=== PATIENT | female | born 1990 | race Caucasian/White ===

== ENCOUNTER 2024-06-15 11:11 | Outpatient (CLI) | payer OTHER, SELFPAY ==
--- OUTSIDE RECORDS SUMMARY | 2024-06-15 11:25 | XMS_ITS | Referral Summary ---
Author Organization [facility] Address [address] [place] [address] Care Team Providers Care Front Desk Associate Name Role Phone Lizette Forte MD Primary Care Provider [phone] Source Comments [facility],non-owned Affiliates and Associated Physician Practices is amultiple site organization consisting of ambulatory clinics and hospital sitesin [place], [place]. This disclosure is being madepursuant to the Care Everywhere program and may not contain all information available regarding this patient. Last updated 18.[facility] Allergies No known active allergies Medications * Be aware that medications may not be up to date on this document. Alwaysverify current medications with the patient. Medication Sig Dispensed Refills Start Date End Date Status medroxyPROGESTERone (DEPO-PROVERA) 150 MG/ML injection as directed 05/27/2020 Active multivitamin daily tablet Take 1 tablet by mouth daily with food Active diclofenac sodium (VOLTAREN) 1 % gelIndications:Pain of right hand Apply 2 (two) g to affected area 2 times daily 100 g 5 11/10/2021 Active Additional Information Patient taking differently:2 g Topical2 TIMES DAILY PRN, Reported on 01/20/2022 Menthol, Topical Analgesic, (BIOFREEZE) 4 %Indications:Pain of right hand 1 tube by Apply externally route 3 times daily as needed 150 mL 5 11/10/2021 Active amitriptyline (ELAVIL) 50 MG tabletIndications:M igraine without aura and without status migrainosus, not intractable Take 1 (one) tablet by mouth at bedtime 90 tablet 3 11/10/2021 Active SUMAtriptan (IMITREX) 100 MG tabletIndications:M igraine without aura and without status migrainosus, not intractable Take medication at the onset of migraine, may repeat in 2 hours 9 tablet 11 11/10/2021 Active Active Problems Problem Noted Date Diagnosed Date Pneumonia due to COVID-19 virus 06/15/2021 Atypical chest pain : anxiet y and /or costochondritis and/or vasospastic angina 08/18/2020 Migraine without aura and wi thout status migrainosus, not intractable 07/16/2020 Health care maintenance 07/16/2020 Bilateral leg edema 07/16/2020 Insertion of Nexplanon 07/16/2014 General counseling and advice for contraceptive management 10/30/2013 Immunizations Name Administration Dates Next Due CHERIE [facility] PRIMARY 18+YR 08/04/2020 DTP 12/15/1995, 3,06/13/1991, 991,01/10/1991 DTaP VACCINE IM (6wk-6yrs) 12/15/1995 HEP B VACCINE, PED/ADOL 06/26/2001,11/21/2000, HIB-HAEMOPHILUS INFLUENZAE B CONJUGATE VACCINE 03/17/1992,06/13/1991,03/15/1991, 991 HIB-PRP-T 4 DOSE 03/17/1992, 2,03/15/1991, 991 MMR 12/15/1995,03/17/1992 POLIO IPV 12/15/1995, 3,03/15/1991, 991 POLIO OPV 12/15/1995, 3,03/15/1991, 991 Social History Tobacco Use Types Packs/Day Years Used Date Smoking Tobacco: Former Smokeless Tobacco: Never Alcohol Use Standard Drinks/Week Comments Yes 0 (1 standard drink = 0.6 oz pur e alcohol) rarely PHQ-2 Answer Date Recorded PHQ2 TOTAL SCORE 0 01/20/2022 Sex and Gender Information Value Date Recorded Sex Assigned at Not on file Gender Identity Not on file Sexual Orientation Not on file Last Filed Vital Signs Vital Sign Reading Time Taken Comments Blood Pressure 126/85 01/20/2022 8:08 AM CDT Pulse 98 01/20/2022 8:08 AM CDT Temperature 36.8 C (98.2 F) 01/20/2022 8:08 AM CDT Respiratory Rate 15 08/15/2020 10:35 PM CDT Oxygen Saturation 97% 01/20/2022 8:08 AM CDT Inhaled Oxygen Concentration - - Weight 66.3 kg (146 lb 3.2 oz) 01/20/2022 8:08 A M CDT Height 157.5 cm (5' 2 ) 01/20/2022 8:08 AM CDT Body Mass Index 26.74 01/20/2022 8:08 AM CDT Plan of Treatment Not on file Care Teams Front Desk Associate Relationship Specialty Start Date End Date Lizette Forte MD [address] [place] [address] [id number] PCP - General Internal Medicine 07/16/20
--- OUTSIDE RECORDS SUMMARY | 2024-06-15 11:25 | XMS_ITS | Clinical Summary ---
Author Organization [facility] [employer] Address [address] [place] [address] Care Team Providers Care Sales Office Assistant Name Role Phone Lizette Forte MD Primary Care Provider [phone] Source Comments [facility],non-owned Affiliates and Associated Physician Practices is amultiple site organization consisting of ambulatory clinics and hospital sitesin [place], [place], [place] and [place]. This disclosure is being madepursuant to the Care Everywhere program and may not contain all information available regarding this patient. Last updated 18.[facility] [employer] Allergies No known active allergies Medications * [...] 3,03/15/1991, 991 POLIO OPV 12/15/1995, 3,03/15/1991, 991 Family History Medical History Relation Name Comments Diabetes - Type 2 Maternal Grandmother Thyroid Disease Maternal Grandmother Relation Name Status Comments Maternal Grandmother Social History Tobacco Use Types Packs/Day Years [...] 01/20/2022 8:08 AM CDT Plan of Treatment Health Maintenance Due Date Last Done Comments DTAP/TDAP/TD VACCINES (6 - Tdap) 2001 12/15/1995, 12/15/1995, 08/15/1992, Additional history exists HIV SCREENING 2005 HEPATITIS C SCREENING 11/07/2008 PAP SMEAR 04/08/2023 04/08/2020 (Done Outside Per Patient) COVID-19 VACCINE (2 - season) 2024 08/04/2020 INFLUENZA VACCINE (#1) 2024 DEPRESSION SCREENING 05/02/2024 08/19/2021 ZOSTER VACCINE (1 of 2) 2040 HIB VACCINE Completed 03/17/1992, 03/02, 06/13/1991, Additional history exists HEPATITIS B VACCINE Completed 06/26/2001, 11/21/2000, 10/24/2000 HPV VACCINE Aged Out No longer eligi ble based on patient's age to complete this topic MENINGOCOCCAL (Group B) VACCINE Aged Out No longer eligible based on patient's age to complete this topic MENINGOCOCCAL VACCINE Aged Out No guille solomon eligible based on patient's age to complete this topic PNEUMOCOCCAL VACCINE Aged Out No long er eligible based on patient's age to complete this topic Care Teams Sales Office Assistant Relationship Specialty Start Date End Date Lizette Forte MD [address] [place] [address] [phone] PCP - General Internal Medicine 07/16/20
--- OUTSIDE RECORDS SUMMARY | 2024-06-15 11:25 | XMS_ITS | Referral Summary ---
Author Organization [facility] Address [address] [place] [address] Care Team Providers Care Ghost Writer Name Role Phone Lizette Forte MD Primary Care Provider [phone] Allergies No known active allergies Medications benzonatate (TESSALON) 100 mg capsuleIndicati ons:Cough Take 2 capsules (200 mg total) by mouth 3 (three) times a day as needed for cough 30 capsule 06/10/2021 Active albuterol HFA (PROVENTIL HFA,VENTOLIN HFA,PROAIR HFA) 90 mcg/actuation inhaler Inhale 2 puffs every 4 (four) hours as needed for wheezing 1 each 06/10/2021 Active acetaminophen-c odeine (TYLENOL w/ CODEINE) solution 120-12 mg/5 mL Take 5 mL by mouth every 6 (six) hours as needed (cough) 120 mL 06/10/2021 Active Social History Tobacco Use Types Packs/Day Years Used Date Smoking Tobacco: Former Alcohol Use Standard Drinks/Week Comments Yes 0 (1 standard drink = 0.6 oz pur e alcohol) occas Personal Safety Answer Date Recorded Getting School Help Needed Not on file 07/02 Comments No Sex and Gender Information Value Date Recorded Sex Assigned at Not on file Legal Sex Female 9:06 PM LINE PATROLLER Gender Identity Not on file Sexual Orientation Not on file Last Filed Vital Signs Vital Sign Reading Time Taken Comments Blood Pressure 126/80 06/10/2021 3:38 AM LINE PATROLLER Pulse 96 06/10/2021 3:38 AM LINE PATROLLER Temperature 37.2 C (98.9 F) 06/09/2021 9:23 PM LINE PATROLLER Respiratory Rate 16 06/10/2021 3:38 AM LINE PATROLLER Oxygen Saturation 97% 06/10/2021 3:38 AM LINE PATROLLER Inhaled Oxygen Concentration - - Weight 64.1 kg (141 lb 5 oz) 06/09/2021 9:23 PM LINE PATROLLER Height - - Body Mass Index - - Plan of Treatment Not on file Insurance CHOICE PLUS CHOICE PLUS Care Teams Ghost Writer Relationship Specialty Start Date End Date Lizette Forte MD [address] [place] [id number] PCP - General Internal Medicine 06/09/21
--- OUTSIDE RECORDS SUMMARY | 2024-06-15 11:25 | XMS_ITS | Patient Health Summary ---
Author Organization [facility] Address [address] [place] [address] Care Team Providers Care Boot Maker Name Role Phone Lizette Forte MD Primary Care Provider [phone] Note [address] [facility],non-owned Affiliates and Associated Physician Practices is amultiple site organization consisting of ambulatory clinics and hospital sitesin [place], [place], [place] and [place]. This disclosure is being madepursuant to the Care Everywhere program and may not contain all information available regarding this patient. Last updated 18.[facility] Allergies No known active allergies Medications * Be aware that medications may not be up to date on this document. Alwaysverify current medications with the patient. * medroxyPROGESTERone (DEPO-PROVERA) 150 MG/ML injection(Started 05/27/2020) as directed * multivitamin daily tablet Take 1 tablet by mouth daily with food * diclofenac sodium (VOLTAREN) 1 % gel(Started 11/10/2021) Apply 2 (two) g to affected area 2 times daily 5 refills by 11/10/2022 * Menthol, Topical Analgesic, (BIOFREEZE) 4 %(Started 11/10/2021) 1 tube by Apply externally route 3 times daily as needed 5 refills by 11/10/2022 * amitriptyline (ELAVIL) 50 MG tablet(Started 11/10/2021) Take 1 (one) tablet by mouth at bedtime 3 refills by 11/10/2022 * SUMAtriptan (IMITREX) 100 MG tablet(Started 11/10/2021) Take medication at the onset of migraine, may repeat in 2 hours 11 refills by 11/10/2022 Active Problems Problem Noted Date Diagnosed Date Pneumonia due to COVID-19 virus 06/15/2021 Atypical chest pain : anxiet y and /or costochondritis and/or vasospastic angina 08/18/2020 Migraine without aura and wi thout status migrainosus, not intractable 07/16/2020 Health care maintenance 07/16/2020 Bilateral leg edema 07/16/2020 Insertion of Nexplanon 07/16/2014 General counseling and advice for contraceptive management 10/30/2013 Immunizations * COVID ABDIRASHID PRIMARY 18+YR(Given 08/04/2020) * DTP(Given 12/15/1995, 08/15/1992, 06/13/1991, 03/15/1991, 01/10/1991) * DTaP VACCINE IM (6wk-6yrs)(Given 12/15/1995) * HEP B VACCINE, PED/ADOL(Given 06/26/2001, 11/21/2000, 10/24/2000) * HIB-HAEMOPHILUS INFLUENZAE B CONJUGATE VACCINE(Given 03/17/1992, 06/13/1991, 03/15/1991, 01/10/1991) * HIB-PRP-T 4 DOSE(Given 03/17/1992, 06/13/1991, 03/15/1991, 01/10/1991) * MMR(Given 12/15/1995, 03/17/1992) * POLIO IPV(Given 12/15/1995, 08/15/1992, 03/15/1991, 01/10/1991) * POLIO OPV(Given 12/15/1995, 08/15/1992, 03/15/1991, 01/10/1991) Social History Tobacco Use Types Packs/Day Years [...] Mass Index 26.74 01/20/2022 8:08 AM CDT Procedures * DERMATOPATHOLOGY(Performed 06/09/2022) * PROCALCITONIN LEVEL(Performed 08/19/2021) Performed for Viral upper respiratory tract infection * SARS-COV-2 (COVID-19) IN HOUSE(Performed 05/11/2021) Performed for Exposure to SARS-associated coronavirus * SARS-COV-2 (COVID-19) PANEL (SOIL)(Performed 05/11/2021) Performed for Exposure to SARS-associated coronavirus * BASIC METABOLIC PANEL (CALCIUM TOTAL)(Performed 08/22/2020) Performed for SAMEER (acute kidney injury) (HCC) * CARDIAC EKG ORDER(Performed 08/20/2020) * CARDIAC EKG ORDER(Performed 08/18/2020) * CT ANGIO CHEST(Performed 08/15/2020) Performed for Chest pain, unspecified type * TROPONIN I(Performed 08/15/2020) * CK W CKMB REFLEX(Performed 08/15/2020) * PT PTT PANEL(Performed 08/15/2020) * COMPREHENSIVE METABOLIC PANEL(Performed 08/15/2020) * CBC W AUTO DIFFERENTIAL(Performed 08/15/2020) * EKG 12-LEAD(Performed 08/15/2020) Performed for Chest pain, unspecified type * CBC W AUTO DIFFERENTIAL(Performed 07/17/2020) Performed for Health care maintenance * COMPREHENSIVE METABOLIC PANEL(Performed 07/17/2020) Performed for Health care maintenance * LIPID PROFILE(Performed 07/17/2020) Performed for Health care maintenance * TSH(Performed 07/17/2020) Performed for Bilateral leg edema * SARS-COV-2 (COVID-19) IN HOUSE(Performed 04/24/2020) Performed for Exposure to SARS-associated coronavirus * SARS-COV-2 (COVID-19) PANEL (SOIL)(Performed 04/24/2020) Performed for Exposure to SARS-associated coronavirus * SARS-COV-2 (COVID-19) IN HOUSE(Performed 02/13/2020) Performed for Exposure to SARS-associated coronavirus * SARS-COV-2 (COVID-19) PANEL (SOIL)(Performed 02/13/2020) Performed for Exposure to SARS-associated coronavirus Results * DERMATOPATHOLOGY (06/09/2022 3:33 AM MANAGING DIRECTOR ATLAS) Case Report Dermatopathology Report Case: [id number] Authorizing Provider: Deonna Morley DO Collected: 06/09/2022 03:33 AM Ordering Location: [facility] DermPath Lab Received: 06/10/2022 09:03 AM Pathologist: Rocio Rojas MD Specimen: Skin, right thigh 3:57 PM MANAGING DIRECTOR ATLAS DERMATOPATHOLOGY LABORATORY Final Diagnosis Specimen A. SKIN, right thigh: INTRADERMAL MELANOCYTIC NEVUS (D22.71) 3:57 PM MANAGING DIRECTOR ATLAS DERMATOPATHOLOGY LABORATORY Clinical History R/O Nevus No Atypia 3:57 PM MANAGING DIRECTOR ATLAS DERMATOPATHOLOGY LABORATORY Gross Description Specimen A: Received is one formalin filled container labeled with the patient's name and designated right thigh. The specimen consists of a shave biopsy measuring 9x7x1 mm. Jar 0. 3:57 PM MANAGING DIRECTOR ATLAS DERMATOPATHOLOGY LABORATORY Microscopic Description Specimen A. SKIN, right thigh: There are nests of cytologically bland melanocytes within the dermis that mature with depth. 3:57 PM MANAGING DIRECTOR ATLAS DERMATOPATHOLOGY LABORATORY Disclaimer An external and internal positive and negative controls are appropriate for the histochemical, immunohistochemical and immunofluorescence stain(s) in this case (if any), except where stated explicitly. The performance characteristics of the stain(s) cited in this report were developed and its performance characteristic determined by the Dermatopathology Laboratory at [facility], directed by Dr. Fidel Jones. These tests need not be, and therefore are not, approved by the [place] Food and Drug Administration. The tests are used for clinical purposes. Billing Codes Specimen Charges Stain Charges 60437 1 3 3:57 PM [facility] DERMATOPATHOLOGY LABORATORY Embedded Images 3 3:57 PM [facility] DERMATOPATHOLOGY LABORATORY Pathology/Cytolo gy TISSUE SPECIMEN FROM SKIN / Unknown 06/09/2022 3:33 AM MANAGING DIRECTOR ATLAS 06/10/2022 9:03 AM MANAGING DIRECTOR ATLAS Deonna Morley DO LAB - PATHOLOGY/C YTOLOGY ORDERABLES Performing Organization Address City/State/[facility] Co de Phone Number DERMATOPATHOLOGY LABORATORY [facility] - Department of Dermatology [facility] Medicine [address] [place] [address], [address] Floor [address] [phone] * PROCALCITONIN LEVEL (08/19/2021 8:48 AM CDT) Procalcitonin 0.09 <=0.10 ng/mL 08/19/2021 1:45 PM CDT [facility] Blood BLOOD SPECIMEN / Unknown Venipuncture / Unknown 08/19/2021 8:48 AM CDT 08/19/2021 8:48 AM CDT Narrative [facility] - 08/19/2021 1:45 PM CDT If baseline PCT is - >2.0 ng/mL: A PCT level above 2.0 ng/mL on the first day of ICU admission is associated with a high risk for progression to severe sepsis and/or septic shock. - <0.5 ng/mL: A PCT level below 0.5 ng/mL on the first day of ICU admission is associated with a low risk for progression to severe sepsis and/or septic shock. If the Procalcitonin measurement is performed shortly after systemic infection process has started (usually less than 6 hours), these values may still be low. As various non-infectious conditions are known to induce procalcitonin as well, Procalcitonin levels between 0.50 ng/mL and 2.00 ng/mL should be reviewed carefully to take into account the specific clinical background and condition(s) of the individual patient. The change in procalcitonin (PCT) concentration over time provides support in decision making on antibiotic discontinuation for suspected or confirmed septic patients and for suspected or confirmed lower respiratory tract infection (LRTI). Follow-up samples should be tested once every 1-2 days based upon physician discretion taking into account the patient's evolution and progress. Discontinuation of antibiotic therapy may be considered for suspected or confirmed septic patients if the current PCT is <= 0.5 ng/mL or <= 0.25 ng/mL for confirmed LRTI. If the PCT delta drop is > 80% in either condition, discontinuation of antibiotic therapy may be indicated. Duration of antibiotics should not be determined solely on PCT; established guidelines for the indication should be followed. Results should be interpreted in the context of a patient's clinical status and other laboratory tests. PCT peak: Highest observed PCT concentration PCT current: Most recent PCT concentration Calculate delta PCT using the following equation: Delta PCT = PCT Peak - PCT current X 100% PCT Peak The Change in Procalcitonin Calculator is available at [email or web address] If clinical picture has not improved and PCT remains high, reevaluate and consider treatment failure or other causes. Lizette Forte MD LAB - CHEMISTRY GUI STEPHENS [facility] [address] * SARS-COV-2 (COVID-19) INTERNAL (05/11/2021 10:02 AM MANAGING DIRECTOR ATLAS) Only the most recent of3 resultswithin the time period is included. COVID-19 PCR Not detected Not detected 05/12/2021 4:29 PM MANAGING DIRECTOR ATLAS [facility] MICROBIOLOGY Microbiology SPECIMEN FROM NASOPHARYNGEAL STRUCTURE / Unknown Collection / Unknown 05/11/2021 10:02 AM MANAGING DIRECTOR ATLAS 05/11/2021 10:02 AM MANAGING DIRECTOR ATLAS Narrative [facility] MICROBIOLOGY - 05/12/2021 4:29 PM [facility] This Real Time RT-PCR assay was developed and its performance characteristics determined by [facility] Microbiology Laboratory. This test has been authorized by the Food and Drug administration (FDA)under an Emergency Use Authorization (EUA). This test has been validated in accordance with the FDA's guidance document Policy for Diagnostic Testing in Laboratories Certified to perform High Complexity Testing under CLIA prior to Emergency Use Authorization for Coronavirus Disease-2019 during the Public Health Emergency issued on June 30, 2019. FDA independent review of this validation is pending. This test is only authorized for the duration of time the declaration that circumstances exist justifying the authorization of emergency use of in vitro diagnostic tests for detection of SARS-CoV-2 virus and/or diagnosis of COVID-19 infection under section 564(b)(1) of the Act, 21 U.S.C 360bbb-3 (b)(1), unless the authorization is terminated or revoked sooner. Fact Sheets for this EUA assay are available upon request. Lizette Forte MD LAB - MICROBIOLOGY O RDERABLES [facility] MICROBIOLOGY [address] [facility] [place] [address], [facility] [phone] * BASIC METABOLIC PANEL (CALCIUM TOTAL) (08/22/2020 7:20 AM CDT) [facility] Glucose 73 70 - 125 mg/dL 08/22/2020 1:48 PM CDT [facility] Sodium 142 136 - 145 mmol/L 08/22/2020 1:48 PM CDT [facility] Potassium 3.9 3.4 - 4.5 mmol/L 08/22/2020 1:48 PM CDT [facility] Chloride 105 98 - 107 mmol/L 08/22/2020 1:48 PM CDT [facility] CO2 26 22 - 29 mmol/L 08/22/2020 1:48 PM CDT [facility] Calcium 8.8 8.4 - 10.2 mg/dL 08/22/2020 1:48 PM CDT [facility] Anion Gap 15 10 - 20 mmol/L 08/22/2020 1:48 PM CDT [facility] BUN 14.7 9.8 - 20.1 mg/dL 08/22/2020 1:48 PM CDT [facility] Creatinine 0.95 0.57 - 1.11 mg/dL 08/22/2020 1:48 PM CDT [facility] eGFR by MDRD >60 >60 mL/min/1.7 3m2 08/22/2020 1:48 PM CDT [facility] eGFR by MDRD >60 >60 mL/min/1.7 3m2 08/22/2020 1:48 PM CDT [facility] Blood BLOOD SPECIMEN / Unknown Venipuncture / Unknown 08/22/2020 7:20 AM CDT 08/22/2020 7:20 AM CDT Lizette Forte MD LAB - CHEMISTRY ORDE KAT [facility] Organization Address City/State/[facility] Co de Phone Number [facility] [address] * CARDIAC EKG ORDER (08/20/2020 6:43 AM CDT) Only the most recent of2 resultswithin the time period is included. Narrative 08/20/2020 6:43 AM CDT Ordered by an unspecified provider. Scanned Document CARDIAC SERVICES ORD ERABLES * CT ANGIO CHEST (08/15/2020 8:34 PM CDT) Anatomical Region Laterality Modality Chest Computed Tomogra phy 08/16/2020 8:07 AM CDT Impressions 08/16/2020 8:34 AM CDT 1. No apparent pulmonary embolus. 2. No acute pulmonary infiltrate or consolidation. Exam reviewed sale professional digital marketing and findings conveyed to the emergency department referring service at 2112 hours central time. Edited by Sil Beltran on 08/16/2020 8:13 AM Narrative 08/16/2020 8:34 AM CDT IMAGING STUDIES: CT ANGIO CHEST DATE: 08/15/2020 8:34 PM HISTORY: Chest pain, unspecified. 29-year-old female with chest pain. Patient reports receiving Tripp + Tripp COVID vaccine one day ago. COMPARISON: No comparisons. DISCUSSION: CTA chest following intravenous administration of 86 mL Isovue-300 contrast. Coronal and sagittal reconstructions. Automated exposure control with radiation dose reduction. CARDIAC: Heart size is within normal limits. No pericardial effusion. AORTA: No aortic aneurysm or dissection. PULMONARY ARTERIES: No apparent pulmonary embolus. LYMPHATIC: No mediastinal or axillary adenopathy. PULMONARY and PLEURA: No focal infiltrate or consolidation. No pleural effusion or pneumothorax. SKELETAL: Rightward curvature thoracic spine. No appreciable acute skeletal abnormality. UPPER ABDOMEN: No acute abnormality in the upper abdomen. Procedure Note Zachariah Luna MD - 08/16/2020 IMAGING STUDIES: CT ANGIO CHEST DATE: 08/15/2020 8:34 PM HISTORY: Chest pain, unspecified. 29-year-old female with chest pain. Patient reports receiving Tripp + Tripp COVID vaccine one day ago. COMPARISON: No comparisons. DISCUSSION: CTA chest following intravenous administration of 86 mL Isovue-300 contrast. Coronal and sagittal reconstructions. Automated exposure control with radiation dose reduction. CARDIAC: Heart size is within normal limits. No pericardial effusion. AORTA: No aortic aneurysm or dissection. PULMONARY ARTERIES: No apparent pulmonary embolus. LYMPHATIC: No mediastinal or axillary adenopathy. PULMONARY and PLEURA: No focal infiltrate or consolidation. No pleural effusion or pneumothorax. SKELETAL: Rightward curvature thoracic spine. No appreciable acute skeletal abnormality. UPPER ABDOMEN: No acute abnormality in the upper abdomen. IMPRESSION 1. No apparent pulmonary embolus. 2. No acute pulmonary infiltrate or consolidation. Exam reviewed sale professional digital marketing and findings conveyed to the emergency department referring service at 2112 hours central time. Edited by Sil Beltran on 08/16/2020 8:13 AM Nahomi Ledezma MD CT ORDERABLES * CK W CKMB REFLEX (08/15/2020 8:23 PM CDT) CK 83 29 - 168 U/L 08/15/2020 8:53 PM CDT [facility] Comment: CK Normal, reflex CKMB Not Performed. Blood BLOOD SPECIMEN / Unknown Venipuncture / Unknown 08/15/2020 8:23 PM CDT 08/15/2020 8:29 PM CDT Nahomi Ledezma MD LAB - CHEMISTRY ORDERABLES Performing Organization Address [facility] Co de Phone Number [facility] [address] * TROPONIN I (08/15/2020 8:23 PM CDT) Pathologist [facility] Troponin I <0.012 <0.032 ng/mL 08/15/2020 8:59 PM CDT [facility] Blood BLOOD SPECIMEN / Unknown Venipuncture / Unknown 08/15/2020 8:23 PM CDT 08/15/2020 8:29 PM CDT Narrative [facility] - 08/15/2020 8:59 PM CDT The universal definition of myocardial infarction (MS) being at least one value above the 99th percentile of the upper reference limit (0.028 ng/mL combined male/female), along with evidence of MS with at least one of the following: Ischemic symptoms, pathological Q waves on electrocardiogram (ECG), ischemic ECG changes or imaging evidence of new loss of viable myocardium or new regional wall motion abnormality. An elevated TNI value alone is not sufficient to make a the diagnosis of MS, serial sampling is recommended to detect the temporal rise and fall of troponin levels characteristic of MS. Any condition resulting in myocardial cell damage can increase cardiac TNI levels. In addition to MS, these include but are not limited to congestive heart failure, arrhythmia, myocarditis and non-cardiac related causes such as pulmonary embolism, renal failure and sepsis. Nahomi Ledezma MD LAB - CHEMISTRY ORDERABLES Performing Organization Address [facility] Co de Phone Number [facility] [address] * (ABNORMAL) PT PTT PANEL (08/15/2020 8:23 PM CDT) Pathologist [facility] PT 13.2 11.3 - 14.8 sec 08/15/2020 8:45 PM CDT [facility] INR 1.04(L) 2 - 3 08/15/2020 8:45 PM CDT [facility] PTT 25.2 23.0 - 38.4 sec 08/15/2020 8:45 PM CDT [facility] Blood BLOOD SPECIMEN / Unknown Venipuncture / Unknown 08/15/2020 8:23 PM CDT 08/15/2020 8:29 PM CDT Narrative [facility] - 08/15/2020 8:45 PM CDT Recommended therapeutic INR ranges for Oral Anticoagulant Therapy: 2.0-3.0 For prevention of Thrombosis or Embolism and treatment of Venous Thrombosis. 2.5- 3.5 for prevention of Recurrent Embolism or treatment of patients with Mechanical Prosthetic Heart Valves. Nahomi Ledezma MD LAB - COAGULATIO N ORDERABLES [facility] [address] * (ABNORMAL) CBC W AUTO DIFFERENTIAL (08/15/2020 8:23 PM CDT) Only the most recent of2 resultswithin the time period is included. [facility] WBC 8.4 4.0 - 10.0 x10E9/L 08/15/2020 8:36 PM CDT [facility] RBC 4.57 3.93 - 5.22 x10E12/L 08/15/2020 8:36 PM CDT [facility] Hemoglobin 13.7 11.2 - 15.7 gm/dL 08/15/2020 8:36 PM CDT [facility] Hematocrit 42.5 34.1 - 44.9 % 08/15/2020 8:36 PM CDT [facility] MCV 93.0 78.0 - 100.0 fl 08/15/2020 8:36 PM CDT [facility] MCH 30.0 25.6 - 34.0 pg 08/15/2020 8:36 PM CDT [facility] MCHC 32.2(L) 32.3 - 36.5 gm/dL 08/15/2020 8:36 PM CDT [facility] RDW 12.8 11.6 - 14.4 % 08/15/2020 8:36 PM CDT [facility] MPV 11.1 9.4 - 12.4 fl 08/15/2020 8:36 PM CDT [facility] Platelet Count 248 163 - 369 x10E9/L 08/15/2020 8:36 PM CDT [facility] Neutrophils % 66.8 40.0 - 75.0 % 08/15/2020 8:36 PM CDT [facility] Lymphocytes % 22.8 19.3 - 53.1 % 08/15/2020 8:36 PM CDT [facility] Monocytes % 9.7 4.7 - 12.5 % 08/15/2020 8:36 PM CDT [facility] Eosinophils % 0.5(L) 0.7 - 7.0 % 08/15/2020 8:36 PM CDT [facility] Basophils % 0.2 0.1 - 1.2 % 08/15/2020 8:36 PM CDT [facility] Neutrophil Absolute 5.59 1.56 - 6.13 x10E9/L 08/15/2020 8:36 PM CDT [facility] Lymphocytes Absolute 1.91 1.18 - 3.74 x10E9/L 08/15/2020 8:36 PM CDT [facility] Monocytes Absolute 0.81 0.24 - 0.86 x10E9/L 08/15/2020 8:36 PM CDT [facility] Eosinophils Absolute 0.04 0.04 - 0.54 x10E9/L 08/15/2020 8:36 PM CDT [facility] Basophils Absolute 0.02 0.01 - 0.08 x10E9/L 08/15/2020 8:36 PM CDT [facility] Blood BLOOD SPECIMEN / Unknown Venipuncture / Unknown 08/15/2020 8:23 PM CDT 08/15/2020 8:29 PM CDT Nahomi Ledezma MD LAB - HEMATOLOGY ORDERABLES Performing Organization Address [facility] de Phone Number [facility] [address] * (ABNORMAL) COMPREHENSIVE METABOLIC PANEL (08/15/2020 8:23 PM CDT) Only the most recent of2 resultswithin the time period is included. [facility] Glucose 97 70 - 125 mg/dL 08/15/2020 8:53 PM CDT [facility] Sodium 143 136 - 145 mmol/L 08/15/2020 8:53 PM CDT [facility] Potassium 3.7 3.4 - 4.5 mmol/L 08/15/2020 8:53 PM CDT [facility] Chloride 108(H) 98 - 107 mmol/L 08/15/2020 8:53 PM T [facility] CO2 23 22 - 29 mmol/L 08/15/2020 8:53 PM CDT [facility] Calcium 9.9 8.4 - 10.2 mg/dL 08/15/2020 8:53 PM T [facility] Anion Gap 16 10 - 20 mmol/L 08/15/2020 8:53 PM T [facility] BUN 13.0 9.8 - 20.1 mg/dL 08/15/2020 8:53 PM T [facility] Creatinine 1.14(H) 0.57 - 1.11 mg/dL 08/15/2020 8:53 PM T [facility] eGFR by MDRD 56(L) >60 mL/min/1.7 3m2 08/15/2020 8:53 PM T [facility] eGFR by MDRD >60 >60 mL/min/1.7 3m2 08/15/2020 8:53 PM T [facility] Alkaline Phosphatase 54 40 - 150 U/L 08/15/2020 8:53 PM CDT [facility] ALT 14 5 - 55 U/L 08/15/2020 8:53 PM T [facility] AST 13 5 - 34 U/L 08/15/2020 8:53 PM T [facility] Protein Total 7.5 6.4 - 8.3 gm/dL 08/15/2020 8:53 PM T [facility] Albumin 4.1 3.5 - 5.0 gm/dL 08/15/2020 8:53 PM [facility] Globulin Total 3.4 2.6 - 4.0 gm/dL 08/15/2020 8:53 PM T [facility] Albumin/Globulin Ratio 1.2 0.9 - 1.6 08/15/2020 8:53 PM T [facility] Bilirubin Total 0.5 0.2 - 1.2 mg/dL 08/15/2020 8:53 PM T [facility] Blood BLOOD SPECIMEN / Unknown Venipuncture / Unknown 08/15/2020 8:23 PM CDT 08/15/2020 8:29 PM CDT Nahomi Ledezma MD LAB - CHEMISTRY ORDERABLES Performing Organization Address City/State/[facility] Co de Phone Number [facility] [address] * EKG 12-LEAD (08/15/2020 8:08 PM CDT) [facility] Ventricular Rate 79 BPM [facility] Atrial Rate 79 BPM [facility] P-R Interval 122 ms [facility] QRS Duration ms 80 ms [facility] Q-T Interval ms 370 ms [facility] QTC Calculation (Bezet) 424 ms [facility] Calculated P [place] 59 degrees [facility] MUSE Calculated R [place] 60 degrees [facility] Calculated T [place] 47 degrees [facility] Interpretation EKG NORMAL SINUS RHYTHM NORMAL ECG NO PREVIOUS ECGS AVAILABLE Confirmed by AWA NICOLAS MD ([id number]), editor school photograph MARISSA GONZÁLES ([id number]) on 08/18/2020 8:25:46 AM [facility] 08/15/2020 8:08 PM CDT 08/18/2020 8:25 AM CDT Nahomi Ledezma MD ECG ORDERABLES Performing Organization Address [facility] Co de Phone Number [facility] * TSH (07/17/2020 8:26 AM CDT) [facility] TSH 1.485 0.35 - 4.94 uIU/mL 07/17/2020 2:33 PM CDT [facility] Blood BLOOD SPECIMEN / Unknown Venipuncture / Unknown 07/17/2020 8:26 AM CDT 07/17/2020 8:26 AM CDT Lizette Forte MD LAB - CHEMISTRY ORDE KAT Performing Organization Address [facility] Co de Phone Number [facility] [address] [place] [phone] * LIPID PROFILE (07/17/2020 8:26 AM CDT) [facility] Cholesterol 166 <200 mg/dL 07/17/2020 1:39 PM CDT [facility] Triglycerides 61 <150 mg/dL 07/17/2020 1:39 PM CDT [facility] HDL Cholesterol 64 >40 mg/dL 1:39 PM CDT [facility] Chol HDL Ratio 2.6 1.0 - 6.0 07/17/2020 1:39 PM CDT [facility] LDL Calculated 90 65 - 130 mg/dL 07/17/2020 1:39 PM CDT [facility] VLDL Calculated 12 <=30 mg/dL 1:39 PM T [facility] Blood BLOOD SPECIMEN / Unknown Venipuncture / Unknown 07/17/2020 8:26 AM CDT 07/17/2020 8:26 AM CDT Narrative [facility] - 07/17/2020 1:39 PM CDT Lipid Profile Comment: CHOLESTEROL LEVEL..................CLINICAL INTERPRETATION LESS THAN 200 MG/DL..............................DESIRABLE 200-239 MG/DL..............................BORDERLINE HIGH GREATER THAN 240 MG/DL................................HIGH LDL-CHOLESTEROL LEVEL..............CLINICAL INTERPRETATION LESS THAN 100 MG/DL................................OPTIMAL 100-129 MG/DL.................................NEAR OPTIMAL GREATER THAN 160 MG/DL...........................HIGH RISK HDL RISK LEVEL GREATER THEN 60 MG/DL............................DECREASED 40-60 MG/DL........................................AVERAGE LESS THAN 40 MG/DL...............................INCREASED TRIGLYCERIDE LEVEL..................CLINICAL INTERPRETATION LESS THAN 150 MG/DL...............................DESIRABLE 150-199 MG/DL...............................BORDERLINE HIGH 200-499 MG/DL..........................................HIGH GREATER THAN 500..................................VERY HIGH THE NATIONAL CHOLESTEROL EDUCATION PROGRAM HAS SET THE ABOVE GUIDELINES (REFERANCE VALUES) FOR CHOLESTEROL AND HDL. RISK ASSOCIATED WITH CHOLESTEROL/HDL RATIOS RISK....................MALE RATIO.............FEMALE RATIO 1/2 AVERAGE.................<3.4.......................<3.3 LOW RISK.................... 4.0 ...................... 3.8 AVERAGE..................... 5.0 ...................... 4.5 2X AVERAGE.................. 9.5 ...................... 7.0 3X AVERAGE...................>23........................>11 Lizette Forte MD LAB - CHEMISTRY [facility] Organization Address City/State/ZIP Co de Phone Number [facility] [address] Care Teams Boot Maker Relationship Specialty Start Date End Date Lizette Forte MD [address] [place] [address] PCP - General Internal Medicine 07/16/20
--- OUTSIDE RECORDS SUMMARY | 2024-06-15 11:25 | XMS_ITS | Clinical Summary ---
Author Organization [facility] Address [address] [place] [address] Care Team Providers Care Cotton Tier Name Role Phone Lizette Forte MD Primary Care Provider [phone] Allergies No known active allergies Medications benzonatate [...] as needed (cough) 120 mL 06/10/2021 Active Surgical History Surgery Date Site/Laterality Comments COLPOSCOPY VULVA W/ BIOPSY Medical History Medical History Date Comments No pertinent past medical history Social History Tobacco Use Types Packs/Day Years Used Date Smoking Tobacco: Former Alcohol Use Standard Drinks/Week Comments Yes 0 (1 standard drink = 0.6 oz pur e alcohol) occas Personal Safety Answer Date Recorded Getting School Help Needed Not on file 07/02 Comments No Sex and Gender Information Value Date Recorded Sex Assigned at Not on file Legal Sex Female 9:06 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 Gender Identity Not on file Sexual Orientation Not on file Obstetrics History Last Filed Vital Signs Vital Sign Reading Time Taken Comments Blood Pressure 126/80 06/10/2021 3:38 AM PROCESS CONTROL SPECIALIST Pulse 96 06/10/2021 3:38 AM PROCESS CONTROL SPECIALIST Temperature 37.2 C (98.9 F) 06/09/2021 9:23 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 Respiratory Rate 16 06/10/2021 3:38 AM PROCESS CONTROL SPECIALIST Oxygen Saturation 97% 06/10/2021 3:38 AM PROCESS CONTROL SPECIALIST Inhaled Oxygen Concentration - - Weight 64.1 kg (141 lb 5 oz) 06/09/2021 9:23 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 Height - - Body Mass Index - - Plan of Treatment Health Maintenance Due Date Last Done Comments Cervical Cancer Screening 1990 Depression Screening 1990 Hepatitis C Screening 1990 DTaP/Tdap/Td Vaccine (6 - Tdap) 2001 12/15/1995, 12/15/1995, 08/15/1992, Additional history exists Varicella Vaccines (1 of 2 - 13+ 2-dose series) 11/13/2003 Regular Well Visit/Exam 18-64 2008 Covid-19 Vaccine ( season) 2024 08/04/2020 Influenza Vaccine (#1) 2024 HPV Vaccines Aged Out No longer eligi ble based on patient's age to complete this topic Pneumococcal vaccine <65 Aged Out No longer eligible based on patient's age to complete this topic Insurance CHOICE PLUS [facility] H[facility]/PPO Address[facility] [address] [place] [address] [facility] CHOICE PLUS [facility] HMO/PPO Address: [facility] [address] [phone] Care Teams Cotton Tier Relationship Specialty Start Date End Date Lizette Forte MD [address] [place] [address] PCP - General Internal Medicine 06/09/21
[2024-06-15 12:04] LABS: Basophils Absolute Auto 0.1 K/mm3 (0.0-0.1); Basophils Percent Auto 1.1 % (0.2-1.2); Eosinophils Absolute Auto 0.1 K/mm3 (0-0.3); Eosinophils Percent Auto 1.1 % (0-4.4); Hematocrit 42.2 % (37.0-47.0); Hemoglobin 13.8 g/dL (12.0-15.0); Immature Granulocyte Absolute 0.01 K/mm3 (0.00-0.031); Immature Granulocyte Percent A 0.2 % (0-0.5); Lymphocytes Absolute Auto 1.33 K/mm3 (0.9-3.2); Lymphocytes Percent Auto 24.6 % (18.3-44.2); Mean Corpuscular HGB Conc 32.7 g/dl (32-36); Mean Corpuscular Volume 94.8 fl (80-100); Mean Platelet Volume 12.1 fl (7.4-10.4); Monocytes Absolute Auto 0.6 K/mm3 (0.1-0.6); Monocytes Percent Auto 10.4 % (2.6-8.5); Neutrophils Absolute Auto 3.4 K/mm3 (1.3-6.7); Neutrophils Percent Auto 62.6 % (45.5-73.1); Platelet Count Result 196 k/mm3 (150-375); Red Blood Count 4.45 M/mm3 (4.2-5.4); Red Cell Distribution Width 12.3 % (11.5-14.5); White Blood Count 5.4 K/mm3 (4.5-10.0)
[2024-06-15 12:09] LABS: Alanine Aminotransferase 26 U/L (6-35); Albumin Level 4.1 g/dL (3.5-5.1); Alkaline Phosphatase 68 U/L (38-126); Anion Gap 10 mmol/L (4-12); Aspartate Amino Transferase 22 U/L (14-36); Bilirubin,Total 0.8 mg/dL (0.2-1.3); Blood Urea Nitrogen 7 mg/dL (7-17); Calcium 9.1 mg/dL (8.4-10.2); Carbon Dioxide 24 mmol/L (22-30); Chloride 106 mmol/L (98-107); Cholesterol 188 mg/dL (0-200); Estimated Glomerular Filt Rate > 60; Glucose 88 mg/dL (65-110); HDL Direct 73 mg/dL; Sodium 140 mmol/L (137-145); Triglycerides 104 mg/dL (<150)
[2024-06-15 12:10] LABS: Rheumatoid Factor < 12.0 IU/ML (<12)
[2024-06-15 12:20] LABS: LDL Cholesterol Direct 72 mg/dL
[2024-06-15 12:40] LABS: Vitamin D 25 Hydroxy 13.7 ng/mL
[2024-06-15 13:06] LABS: Erythrocyte Sedimentation Rate 12 mm/hr (0-20)
== END 2024-06-15 11:12 | disposition home or self-care (01) ==
PROVIDERS: PCP Nurse Practitioner Family; Visit Provider Nurse Practitioner Family
DX: M25.571 Pain in right ankle and joints of right foot (principal); M25.572 Pain in left ankle and joints of left foot; Z13.220 Encounter for screening for lipoid disorders; F41.9 Anxiety disorder, unspecified
CPT/HCPCS: 36415; 80053; 80061; 82306; 84443; 85025; 85652; 86038; 86039; 86430